=== PATIENT | female | born 1995 ===

== ENCOUNTER 2017-01-30 15:22 | Emergency (ER) | payer SELFPAY ==
[2017-01-30] MEDS ORDERED: Lactated Ringer's 1,000 ML IV STA (17:07)
--- NOTE | 2017-01-30 17:48 | ED PDOC ---
HPI: Female Pain Time Seen by Provider: 01/30/17 16:40 Chief Complaint (Nursing): Female Genitourinary Chief Complaint (Provider): Vaginal Spotting History Per: Patient History/Exam Limitations: no limitations Onset/Duration Of Symptoms: Days (2 days) Current Symptoms Are (Timing): Still Present Severity: Moderate Quality Of Discomfort: denies: "Pain" Associated Symptoms: Nausea, Vomiting (intermittent episodes). denies: Urinary Symptoms, Other (vaginal discharge) Additional Complaint(s): Maureen Leal is a 22 year old female, with no pertinent past medical history, who presents to the emergency department for the evaluation of vaginal spotting, inclusive of bright red clots, that the patient noticed after going to the bathroom and wiping 2 days ago. Associated nausea and intermittent episodes of vomiting are currently present. Denies pain, urinary symptoms, or vaginal discharge. Of note, patient is , P:0. Patient had a spontaneous miscarriage in 2014, has not started care; however, has begun taking vitamins. PMD: none specified Abnormal Vaginal Bleeding: Yes : 2 Para: 0 Past Medical History Reviewed: Historical Data, Nursing Documentation, Vital Signs Vital Signs: Last Vital Signs Temp 98.5 F 01/30/17 16:09 Pulse 98 H 01/30/17 16:09 Resp 16 01/30/17 16:09 BP 132/62 01/30/17 16:09 Pulse Ox 99 01/30/17 16:09 - Medical History PMH: No Chronic Diseases - Surgical History Surgical History: No Surg Hx - Family History Family History: States: No Known Family Hx - Allergies Allergies/Adverse Reactions: Allergies Allergy/AdvReac Type Severity Reaction Status Date / Time No Known Allergies Allergy Verified 01/30/17 16:09 Review of Systems ROS Statement: Except As Marked, All Systems Reviewed And Found Negative Gastrointestinal: Positive for: Nausea, Vomiting (intermittent episodes) Genitourinary Female: Positive for: Vaginal Bleeding (spotting). Negative for: Dysuria, Hematuria, Vaginal Discharge Physical Exam - Reviewed Nursing Documentation Reviewed: Yes Vital Signs Reviewed: Yes - Physical Exam Appears: Positive for: Well, Non-toxic, No Acute Distress Head Exam: Positive for: ATRAUMATIC, NORMAL INSPECTION, NORMOCEPHALIC Skin: Positive for: Normal Color, Warm, Dry Eye Exam: Positive for: Normal appearance, EOMI, PERRL ENT: Positive for: Normal ENT Inspection. Negative for: Pharyngeal Erythema, Tonsillar Exudate Neck: Positive for: Normal, Painless ROM, Supple Cardiovascular/Chest: Positive for: Regular Rate, Rhythm. Negative for: Murmur Respiratory: Positive for: Normal Breath Sounds. Negative for: Wheezing, Respiratory Distress Gastrointestinal/Abdominal: Positive for: Normal Exam, Soft. Negative for: Tenderness Pelvic Exam: Positive for: External Exam Normal, No Cerv. Motion Tender, No Masses, Active Bleeding, Blood (moderate bright red from closed cervix) Back: Positive for: Normal Inspection. Negative for: Decreased ROM Extremity: Positive for: Normal ROM. Negative for: Tenderness, Deformity Lymphatic: Negative for: Adenopathy Neurologic/Psych: Positive for: Alert, Oriented. Negative for: Motor/Sensory Deficits - Laboratory Results Result Diagrams: 01/30/17 17:35 01/30/17 17:35 - ECG O2 Sat by Pulse Oximetry: 99 (RA) Pulse Ox Interpretation: Normal Medical Decision Making Medical Decision Makin:40 Initial Impression: Vaginal bleeding and Differential Diagnoses include, but are not limited to a threatened miscarriage , ectopic , bacterial vaginosis, urinary tract infection, and dehydration. Initial Plan: * Type and Screen * CBC * BMP * PT/PTT * Beta-HCG, Quantitative * Urine Dip * Urine * Chlamydia/GC RNA, TMA * Lactated Ringer's 1,000 ml IV at 1,000 mls/hr * Genital Culture * Reevaluation Accession No. : [id number] Patient Name / ID : JOSE REDDY / [id number] Exam Date : 01/30/2017 20:35:17 ( Approved ) Study Comment : Sex / Age : F / 22Y Creator : Sasha Milner MD Dictator : Consolidator : Bookkeeper : Sasha Milner MD Approver2 : Report Date : 01/30/2017 21:30:00 My Comment : [facility] Division of Radiology [address] [place] [address] Tel. no. Patient Name: MAUREEN VASQUEZ Pt. Address: [address] [place] [address]. Rec #: [id number] [place] [address]: Jaime GUAMAN, Rosina Vilchis Pt Order Location: [facility] : 1995 Female Age: 22 Order #: [id number] Reason for exam: preg pelvic pain Ultrasound OB TRANSVAGINAL Exam Date: 01/30/17 This imaging exam was performed at [facility] EXAM: US , Transvaginal CLINICAL HISTORY: 22 years old, female; Pain; Gestational age or lmp: 12/13/16; ; Additional info: Preg pelvic pain TECHNIQUE: Real-time transvaginal obstetrical ultrasound of the maternal pelvis and a first trimester with image documentation. Transvaginal imaging was used for better evaluation of the fetus and adnexa. EXAM DATE/TIME: 01/30/2017 8:20 PM COMPARISON: No relevant prior studies available. FINDINGS: Uterus: Measures 7.2 x 4.3 x 5.4 cm. Single intrauterine gestation identified. pole and yolk sac are seen. Estimated gestational age is 6 weeks, 1 day, based on the crown rump length. heart motion visualized, at 106-113 beats per minute. The margins of the gestational sac appear irregular. Note that the anatomy, amniotic fluid volume, and placental position cannot be evaluated at this early gestational age. Cervix appears closed. Right ovary: Mildly enlarged in size, measuring 4.6 x 3.0 x 3.7 cm, secondary to a simple cystic lesion, measuring 3.3 x 2.9 x 3.1 cm. This cyst is almost certainly benign. No follow-up is necessary. Flow seen in the right ovary on color and Doppler imaging, with no evidence of torsion. Left ovary: Within normal limits in appearance, containing multiple follicles. Measures 2.1 x 1.4 x 2.0 cm. Flow seen in the left ovary on color and Doppler imaging, with no evidence of torsion. Cul de sac: No free fluid. IMPRESSION: 6 week, 1 day intrauterine with heart motion. The heart rate is at the lower limits of normal, and the margins of the gestational sac appear irregular. Findings could be signs of an increased risk of miscarriage. Recommend clinical correlation and followup. See above for remaining findings. Dictated By: Sasha Milner MD Dictated Date/Time: 01/30/172129 Signed By: Sasha Milner MD Date Signed: 2129 Transcribed By: ORLY Transcribe Date/Time : 01/30/172129 RMMP02/VRD dw pt possibility of miscarriage and advised to follow up at [facility] Thursday or women's clinic. Bleeding instructions given. Scribe Attestation: Documented by Arthur Hsu, acting as a scribe for Rosina Sandoval MD. Provider Scribe Attestation: All medical record entries made by the Scribe were at my direction and personally dictated by me. I have reviewed the chart and agree that the record accurately reflects my personal performance of the history, physical exam, medical decision making, and the department course for this patient. I have also personally directed, reviewed, and agree with the discharge instructions and disposition. Disposition - Clinical Impression Clinical Impression: Threatened miscarriage Counseled Patient/Family Regarding: Studies Performed, Diagnosis, Need For Followup - Disposition Referrals: [facility] Clinic [Outside] - 02/02/17 Disposition: Routine/Home Disposition Time: 22:00 Condition: STABLE Additional Instructions: AKIN MUCHO FLUIDOS Y DESCANSE NO RELACIONES, NO TAMPON, NO ALGUNA EN VAGINA VISITA A LA CODY DE MUJERES LUNES A CHEQAR DE NUEVO Instructions: Threatened Miscarriage (ED) Print Language: ROMANSH
[2017-01-30 17:53] LABS: BASO % 0.4 % (0.0-2.0); EOS % 0.1 % (0.0-4.0); HEMATOCRIT 37.8 % (34.0-47.0); LYMPH # 0.6 K/uL (1.0-4.3); LYMPH % 7.1 % (20.0-40.0); MEAN CELL VOLUME 93.8 fl (81.0-99.0); MEAN CORPUSCULAR HEMOGLOBIN 30.8 pg (27.0-31.0); MEAN CORPUSCULAR HGB CONC 32.8 g/dL (33.0-37.0); MONO # 0.5 K/uL (0.0-0.8); MONO % 5.6 % (0.0-10.0); NEUT # 7.4 K/uL (1.8-7.0); NEUT % 86.8 % (50.0-75.0); NRBC % 0.1 % (0.0-0.0); PLATELET COUNT 173 K/uL (130-400); RED CELL DISTRIBUTION WIDTH 13.4 % (11.5-14.5); WHITE BLOOD COUNT 8.6 K/uL (4.8-10.8)
[2017-01-30 18:14] LABS: BLOOD UREA NITROGEN 7 mg/dl (7-17); CALCIUM 9.5 mg/dL (8.4-10.2); CARBON DIOXIDE 24 mmol/L (22-30); CHLORIDE 105 mmol/L (98-107); GFR AFRICAN-AMERICAN > 60; GLUCOSE,RANDOM 83 mg/dL (65-105); POTASSIUM 3.7 MMOL/L (3.6-5.0); SODIUM 137 mmol/l (132-148)
[2017-01-30 18:26] LABS: PARTIAL THROMBOPLASTIN TIME 26.1 SECONDS (23.3-32.5)
--- NOTE | 2017-01-30 21:30 | US ---
EXAM: US , Transvaginal CLINICAL HISTORY: 22 years old, female; Pain; Gestational age or lmp: 12/13/16; ; Additional info: Preg pelvic pain TECHNIQUE: Real-time transvaginal obstetrical ultrasound of the maternal pelvis and a first trimester with image documentation. Transvaginal imaging was used for better evaluation of the fetus and adnexa. EXAM DATE/TIME: 01/30/2017 8:20 PM COMPARISON: No relevant prior studies available. FINDINGS: Uterus: Measures 7.2 x 4.3 x 5.4 cm. Single intrauterine gestation identified. pole and yolk sac are seen. Estimated gestational age is 6 weeks, 1 day, based on the crown rump length. heart motion visualized, at 106-113 beats per minute. The margins of the gestational sac appear irregular. Note that the anatomy, amniotic fluid volume, and placental position cannot be evaluated at this early gestational age. Cervix appears closed. Right ovary: Mildly enlarged in size, measuring 4.6 x 3.0 x 3.7 cm, secondary to a simple cystic lesion, measuring 3.3 x 2.9 x 3.1 cm. This cyst is almost certainly benign. No follow-up is necessary. Flow seen in the right ovary on color and Doppler imaging, with no evidence of torsion. Left ovary: Within normal limits in appearance, containing multiple follicles. Measures 2.1 x 1.4 x 2.0 cm. Flow seen in the left ovary on color and Doppler imaging, with no evidence of torsion. Cul de sac: No free fluid. IMPRESSION: 6 week, 1 day intrauterine with heart motion. The heart rate is at the lower limits of normal, and the margins of the gestational sac appear irregular. Findings could be signs of an increased risk of miscarriage. Recommend clinical correlation and followup. See above for remaining findings.
[2017-01-30 22:24] LABS: NEUTROPHIL 87 % (42-75); TOTAL CELLS COUNTED 100
[2017-01-30 22:25] LABS: LARGE PLATELETS PRESENT
[2017-01-30 23:08] VITALS: BP 112/77; PULSE 89; RESP 18; TEMP 97.8; O2SAT 100
== END 2017-01-30 23:07 | disposition home or self-care (01) ==
LOC: H.ER 15:22
DX: O20.0 Threatened abortion (principal); O26.891 Other specified pregnancy related conditions, first trimester; R10.2 Pelvic and perineal pain
CPT/HCPCS: 76817; 80048; 81025; 84702; 85025; 85610; 85730; 86850; 86900; 87070; 87491; 87591; 96360; 99284; J7120